=== PATIENT | male | born 1985 | race Caucasian/White ===

== ENCOUNTER → 2020-01-14 15:04 | Outpatient (BNVA) | payer OTHER, SELFPAY | PROVIDERS: PCP Family Medicine; Referring Provider Family Medicine; Visit Provider Physician Assistant | DX: K52.9 Noninfective gastroenteritis and colitis, unspecified (principal); A04.8 Other specified bacterial intestinal infections ==

== ENCOUNTER 2020-01-20 09:03 | Outpatient (REF) | payer OTHER, SELFPAY | END 2020-01-20 09:04 | disposition home or self-care (01) | LOC: HO.LAB 09:03 | PROVIDERS: PCP Family Medicine; Visit Provider Physician Assistant | DX: K52.9 Noninfective gastroenteritis and colitis, unspecified (principal) | CPT/HCPCS: 82785; 86003; 87338 ==

== ENCOUNTER → 2020-08-03 08:22 | Outpatient (BNVA) | payer OTHER, SELFPAY | PROVIDERS: PCP Family Medicine; Visit Provider Physician Assistant ==

== ENCOUNTER → 2020-09-14 08:22 | Outpatient (BNVA) | payer OTHER, SELFPAY | PROVIDERS: PCP Family Medicine; Visit Provider Physician Assistant ==

== ENCOUNTER 2020-10-25 09:54 | Outpatient (REF) | payer OTHER, SELFPAY ==
[2020-10-25 10:40] LABS: MANUAL DIFF FLAG NO
[2020-10-25 10:43] LABS: Basophils Percent Auto 0.6 % (0-2); Eosinophils Absolute Auto 0.1 X10*3/uL (0.0-0.4); Eosinophils Percent Auto 1.5 % (0-4); Hematocrit 43.3 % (42-52); Hemoglobin 14.4 g/dl (14.0-18.0); Imm Gran Abs Auto 0.03 X10*3/uL (0.00-0.03); Imm Gran Pct Auto 0.6 % (0.0-0.4); Lymphocytes Absolute Auto 1.7 X10*3/uL (1.2-4.9); Lymphocytes Percent Auto 31.8 % (20-40); Mean Corpuscular HGB Conc 33.3 g/dl (31.0-36.0); Mean Corpuscular Hemoglobin 29.2 pg (27.0-33.0); Mean Corpuscular Volume 87.8 fL (80-98); Mean Platelet Volume 10.2 fL (9.4-12.4); Monocytes Absolute Auto 0.5 X10*3/uL (0.1-1.2); Monocytes Percent Auto 10.3 % (2-11); Neutrophils Absolute Auto 2.9 X10*3/uL (2.0-8.3); Neutrophils Percent Auto 55.2 % (45-73); Platelet Count 284 X10*3/uL (160-400); Red Blood Count 4.93 X10*6/uL (4.60-5.80); Red Cell Distribution Width 12.2 % (11.0-16.0); White Blood Count 5.3 X10*3/uL (4.8-10.8)
[2020-10-25 11:53] LABS: Alanine Aminotransferase 23 U/L (0-40); Albumin Level 4.8 g/dL (3.5-5.0); Alkaline Phosphatase 55 U/L (39-117); Anion Gap 11 (12-20); Aspartate Amino Transferase 26 U/L (5-37); Blood Urea Nitrogen 18 mg/dL (9-16); Calcium 9.7 mg/dL (8.4-10.2); Carbon Dioxide 29 mmol/L (22-29); Chloride 104 mmol/L (96-108); Cholesterol 220 mg/dL; Estimated Glomerular Filt Rate > 60; Glucose Fasting 94 mg/dL (60-99); HDL Cholesterol 50 mg/dL; LDL Cholesterol Calculated 148 mg/dl; Potassium 4.3 mmol/L (3.3-5.1); Sodium 140 mmol/L (135-145); Total Protein 7.2 g/dL (6.5-8.0); Triglycerides 113 mg/dL
[2020-10-25 12:03] LABS: TSH reflex Free T4 1.49 uIU/mL (0.32-4.0)
== END 2020-10-25 09:55 | disposition home or self-care (01) ==
LOC: HO.WFDLDS 09:54
PROVIDERS: Visit Provider Family Medicine
DX: Z00.00 Encounter for general adult medical examination without abnormal findings (principal); R53.83 Other fatigue
CPT/HCPCS: 36415; 80053; 80061; 84443; 85025

== ENCOUNTER 2020-11-30 07:07 | Outpatient (REF) | payer OTHER, SELFPAY ==
[2020-11-30 13:12] LABS: Erythrocyte Sedimentation Rate 1 MM/HR (0-15)
[2020-12-02 01:07] LABS: Lyme Abs Screen <0.90 index
[2020-12-02 13:36] LABS: CRP High Sensitivity 0.6 mg/L
[2020-12-04 16:36] LABS: Testosterone, Free 97.6 pg/mL (35.0-155.0); Testosterone, Total 564 ng/dL (250-1100)
== END 2020-11-30 07:08 | disposition home or self-care (01) ==
LOC: HO.WFDLDS 07:07
PROVIDERS: Visit Provider Family Medicine
DX: R53.83 Other fatigue (principal)
CPT/HCPCS: 36415; 84402; 84403; 85652; 86141; 86617; 86618

== ENCOUNTER 2021-10-26 09:41 | Outpatient (REF) | payer OTHER, SELFPAY ==
[2021-10-26 11:21] LABS: MANUAL DIFF FLAG NO
[2021-10-26 11:32] LABS: Basophils Percent Auto 0.7 % (0-2); Eosinophils Absolute Auto 0.1 X10*3/uL (0.0-0.4); Eosinophils Percent Auto 1.5 % (0-4); Hematocrit 45.6 % (42.0-52.0); Hemoglobin 15.3 g/dl (14.0-18.0); Imm Gran Abs Auto 0.04 X10*3/uL (0.00-0.03); Imm Gran Pct Auto 0.7 % (0.0-0.4); Lymphocytes Percent Auto 36.5 % (20-40); Mean Corpuscular HGB Conc 33.6 g/dl (31.0-36.0); Mean Corpuscular Hemoglobin 29.4 pg (27.0-33.0); Mean Corpuscular Volume 87.7 fL (80.0-98.0); Mean Platelet Volume 10.8 fL (9.4-12.4); Monocytes Absolute Auto 0.5 X10*3/uL (0.1-1.2); Monocytes Percent Auto 8.8 % (2-11); Neutrophils Absolute Auto 2.8 x10*3/uL (2.0-8.3); Neutrophils Percent Auto 51.8 % (45-73); Platelet Count 292 X10*3/uL (160-400); Red Cell Distribution Width 11.9 % (11.0-16.0); White Blood Count 5.4 X10*3/uL (4.8-10.8)
[2021-10-26 12:02] LABS: Alanine Aminotransferase 46 U/L (0-40); Albumin Level 4.9 g/dL (3.5-5.0); Alkaline Phosphatase 53 U/L (39-117); Anion Gap 13 (12-20); Aspartate Amino Transferase 30 U/L (5-37); Bilirubin Total 0.9 mg/dL (0.0-1.0); Blood Urea Nitrogen 24 mg/dL (9-16); Calcium 9.9 mg/dL (8.4-10.2); Carbon Dioxide 26 mmol/L (22-29); Chloride 104 mmol/L (96-108); Cholesterol 258 mg/dL; Estimated Glomerular Filt Rate > 60; Glucose Fasting 95 mg/dL (60-99); HDL Cholesterol 55 mg/dL; LDL Cholesterol Calculated 183 mg/dl; Potassium 4.5 mmol/L (3.3-5.1); Sodium 138 mmol/L (135-145); Total Protein 7.6 g/dL (6.5-8.0); Triglycerides 104 mg/dL
[2021-10-26 12:11] LABS: TSH reflex Free T4 2.04 uIU/mL (0.32-4.0)
== END 2021-10-26 09:42 | disposition home or self-care (01) ==
LOC: HO.WFDLDS 09:41
PROVIDERS: Visit Provider Family Medicine
DX: Z00.00 Encounter for general adult medical examination without abnormal findings (principal)
CPT/HCPCS: 36415; 80053; 80061; 84443; 85025

== ENCOUNTER 2022-04-30 11:37 | Emergency (ER) | payer OTHER, SELFPAY ==
--- NOTE | ~2022-04-30 | US_ITS ---
EXAMINATION: US ABDOMEN LIMITED CLINICAL INFORMATION: Right upper quadrant pain. COMPARISON: Abdominal ultrasound 09/16/2019. TECHNIQUE: Real-time imaging of the right upper quadrant abdominal viscera. FINDINGS: PANCREAS: The body and tail are obscured by overlying bowel gas. The visualized portions of the head are within normal limits. LIVER: Normal. The liver is normal in size. The liver contour is normal. Parenchymal echogenicity is normal. No focal hepatic lesion. There is no intrahepatic biliary duct dilatation seen. GALLBLADDER: A 0.8 cm polyp is increased in size from 0.6 cm on 09/16/2019. The gallbladder is physiologically distended without evidence of stones, sludge, wall thickening or pericholecystic fluid. COMMON BILE DUCT: Normal in caliber measuring 0.4 cm in diameter. RIGHT KIDNEY: Mild pelvic fullness without calyectasis. No hydronephrosis. No renal calculi or focal parenchymal lesions. The kidney measures 12.6 cm in maximum dimension. FREE FLUID: None. US/US abdomen limited IMPRESSION: 1. No acute sonographic abnormalities to explain the patient's symptoms. 2. A 0.8 cm gallbladder polyp is increased in size from 0.6 cm on 09/16/2019. If patient has no risk factors for gallbladder malignancy, a follow-up ultrasound in 6 months is recommended. If the patient has risk factors for gallbladder malignancy, a surgical consultation is recommended.
--- NOTE | ~2022-04-30 | CT_ITS ---
EXAMINATION: CT ABDOMEN AND PELVIS WITH CONTRAST CLINICAL INFORMATION: RUQ pain COMPARISON: None. TECHNIQUE: Multidetector volumetric imaging was performed from the superior aspect of the liver through the pubic symphysis following administration of 85 mL Omnipaque 300 intravenous contrast. Sagittal and coronal reformatted images were obtained on the technologist workstation.. This CT examination was performed using dose optimization techniques as appropriate, variously including the following: *Automated exposure control *Adjustment of mA and/or kV according to patient size (this includes techniques or standardized protocols for targeted exams where dose is matched to indication/reason for exam; i.e. extremities or head) *Use of iterative reconstruction technique DLP: 620 mGy-cm FINDINGS: LUNG BASES: The visualized lung bases are unremarkable. LIVER, GALLBLADDER, AND BILIARY TREE: The liver is normal in size, shape, and attenuation. No focal hepatic lesion or biliary ductal dilatation is present. The gallbladder is unremarkable with no evidence of radiopaque gallstones, gallbladder wall thickening, or obvious pericholecystic inflammatory changes. PANCREAS: Unremarkable. SPLEEN: 14.2 cm maximum anterior posterior diameter ADRENAL GLANDS: Unremarkable. KIDNEYS AND URETERS: The kidneys are normal in size, shape, and attenuation. Incidental bilateral extrarenal pelvises. No hydronephrosis, hydroureter, or calculi seen. No perinephric stranding. BLADDER: Decompressed GASTROINTESTINAL TRACT: Dense material seen within the stool likely representing previously ingested antacid. I do not appreciate any colonic wall thickening or pericolonic inflammatory change. Normal-appearing appendix in the right lower quadrant without periappendiceal inflammatory change. Visualized small bowel unremarkable. ABDOMINAL WALL: No significant hernia is appreciated. LYMPHOVASCULAR STRUCTURES: Shotty retroperitoneal periaortic lymph nodes. The aorta is unremarkable. PELVIC VISCERA: Unremarkable. OSSEOUS STRUCTURES: Unremarkable. CT/CT abdomen pelvis w IV con IMPRESSION: I do not appreciate any acute intra-abdominal process. Dense material seen within the stool likely representing previously ingested antacid.
[2022-04-30 11:53] VITALS: BP 143/92; PULSE 75; RESP 18; TEMP 36.6; O2SAT 100; BMI 29.0
--- NOTE | 2022-04-30 11:54 | ED_ITS ---
HPI - Abdominal Pain General Chief Complaint: Abdominal Pain <FRANDY Archer - Last Filed: 04/30/22 11:56> Stated Complaint: Abdominal Pain <FRANDY Archer - Last Filed: 04/30/22 11:56> Time Seen by Provider: 04/30/22 16:10 <FRANDY Archer - Last Filed: 04/30/22 11:56> Source: patient <FRANDY Rush Last Filed: 04/30/22 19:25> Mode of arrival: ambulatory <FRANDY Rush Last Filed: 04/30/22 19:25> Limitations: no limitations <FRANDY Rush Last Filed: 04/30/22 19:25> History of Present Illness HPI narrative: 36-year-old male presenting to the clinic for evaluation of right upper quadrant pain, intermittent, sharp in nature X a few weeks worsening over the past few days. Patient states pain is worse after eating.? Patient tells me he has a history of polyps to his gallbladder which he has been seen for and has been told to monitor.? He tells me the pain is similar to the time he had polyps.? Reports that this pain is intolerable when he gets these episodes very hard for him to eat. Right now he feels comfortable however pain comes and goes.? Denies chest pain, shortness of breath, headache, vision changes, dizziness, weakness, nausea.? Does report diarrhea however has chronic diarrhea. Patient drinks 2X per week, beer and wine, however states not heavily. <FRANDY Rush Last Filed: 04/30/22 19:25> Related Data Home Medications: Home Medications Medication Instructions Recorded Confirmed pantoprazole 40 mg tablet,delayed 1 tab PO DAILY 04/30/22 04/30/22 release Previous Rx's Medication Instructions Recorded famotidine 20 mg tablet 20 mg PO DAILY #30 tabs 06/27/20 albuterol sulfate 90 mcg/actuation 2 puff inhalation Q4-6H PRN 10/25/20 aerosol inhaler (ProAir HFA) shortness of breath or wheezing 30 days #8.5 grams bupropion HCl 100 mg tablet 100 mg PO DAILY 90 days #90 tabs 11/15/21 atorvastatin 20 mg tablet 20 mg PO BEDTIME 30 days #30 tabs 11/23/21 <FRANDY Archer - Last Filed: 04/30/22 11:56> Allergies/Adverse Reactions: Allergies Allergy/AdvReac Type Severity Reaction Status Date / Time No Known Allergies Allergy Verified 04/30/22 11:08 [No Known Allergies*] <FRANDY Archer - Last Filed: 04/30/22 11:56> Review of Systems Review of Systems Constitutional : No Weight loss, No Fever, No Chills, No Fatigue, No Malaise ENT/Mouth : No sore throat, No Rhinorrhea Eyes: No Eye Pain, No Swelling, No Redness Cardiovascular : No Chest Pain, No SOB, No Dyspnea on Exertion, No Orthopnea, No Edema, No Palpitations Respiratory : No Cough, No Sputum, No Wheezing Gastrointestinal : No Nausea, No Vomiting, + Diarrhea, No Constipation, + abdominal Pain, No Hematochezia, No Melena Genitourinary : No Dysuria, No Urinary Frequency, No Hematuria, Musculoskeletal : No joint pain, No Myalgias, No Joint Swelling Skin : No Skin Lesions, No rash Neuro : No Weakness, No Numbness, No Dizziness, No Headache Psych : No Anxiety/Panic, No Depression All other systems reviewed and are negative <FRANDY Rush - Last Filed: 04/30/22 19:25> Yes all other systems are reviewed and are negative <FRANDY Rush - Last Filed: 04/30/22 19:25> PMFSH Past Medical History Attestation statement: The following information was validated with the patient. <FRANDY Rush - Last Filed: 04/30/22 19:25> Source: old records reviewed and nursing notes reviewed <FRANDY Rush - Last Filed: 04/30/22 19:25> Medical History: Medical History Chronic diarrhea <FRANDY Archer - Last Filed: 04/30/22 11:56> Surgical History: Surgical History History of ankle surgery <FRANDY Archer - Last Filed: 04/30/22 11:56> Family History Family History: Family History Father No problems noted. Mother No problems noted. 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 Current occupational exposures/hazards: Yes Cognitive needs: No Hearing needs: No Vision needs: No <FRANDY Archer - Last Filed: 04/30/22 11:56> Physical Exam ED Vital Signs: Vital Signs - 24 hr 04/30/22 11:53 04/30/22 16:08 Temperature 97.8 F 98.4 F Pulse Rate 75 82 Respiratory Rate 18 18 Blood Pressure 143/92 H 154/86 H Pulse Oximetry 100 100 Oxygen Delivery Method Room Air Room Air BMI result Body Mass Index 29.0 <FRANDY Archer - Last Filed: 04/30/22 11:56> Vital Signs - 24 hr 04/30/22 11:53 04/30/22 16:08 Temperature 97.8 F 98.4 F Pulse Rate 75 82 Respiratory Rate 18 18 Blood Pressure 143/92 H 154/86 H Pulse Oximetry 100 100 Oxygen Delivery Method Room Air Room Air BMI result Body Mass Index 29.0 vss <FRANDY Rush - Last Filed: 04/30/22 19:25> Appearance: Alert.? Oriented X3.? No acute distress.? Head: Normocephalic, atraumatic, no step-offs or deformities Eyes: Pupils equal, round and reactive to light.? Neck: Normal inspection.? Neck supple.? CVS: Normal heart rate and rhythm.? Pulses normal.? Respiratory: No respiratory distress.? Breath sounds normal.? Abdomen: Soft and +RUQ tenderness .? Skin: Skin warm and dry.? Normal skin color.? Normal skin turgor.? Extremities: No lower extremity edema.? No calf ttp. 5/5 strength to bilateral upper and lower extremities Back: No midline tenderness, no C-spine tenderness, full range of motion, no CVA tenderness bilaterally Neuro: Oriented X 3.? No motor deficit.? No sensory deficit. CN 2-12 intact <FRANDY Rush - Last Filed: 04/30/22 19:25> Course Course Course Narrative: RME - 36 yo M, with a hx of gall bladder polyps, presenting today for evaluation of RUQ pain x 1.5 weeks. Associated indigestion, nausea, and diarr hea. Denies vomiting. Pain worsens after eating. Seen at urgent care today and was told to come here. VSS in triage. Stable to return to the waiting room until treatment room becomes available. Plan: Labs, and US RUQ ordered. <FRANDY Archer - Last Filed: 04/30/22 1 1:56> Reevaluation(s) Reevaluation #1: CBC appears to be within normal limits. Chemistry with no acute elec trolyte abnormalities requiring intervention. Patient's bilirubin slightly elevated 1.2. Lipase 170 consistent with acute pancreatitis. Ultrasound of the abdomen limited with no acute sonographic abnormalities to explain the patient's symptoms the gallbladder polyp does appear to have increased in size. CT of the abdomen and pelvis with no acute findings. Patient will receive IV hydration and be admitted to the hospital for acute pancreatitis. <FRANDY Rush - Last Filed: 04/30/22 19:25> Time: 19:25 <FRANDY Rush - Last Filed: 04/30/22 19:25> Medical Decision Making Medical Decision Making MDM Narrative: 1600 36-year-old man presents with right upper quadrant pain worse after eating few weeks worsening over the past few days. History of gallbladder polyps. Physical exam right upper quadrant tenderness to palpation. Concerns for possible cholecystitis, no signs of acute abdomen, diverticulitis, appendicitis. Other differentials include pancreatitis. Plan at this time labs, urine, ultrasound and CT scan <FRANDY Rush - Last Filed: 04/30/22 19:25> Differential Diagnosis Differential Diagnoses: The differential diagnosis associated with the presentation includes <FRANDY Rush - Last Filed: 04/30/22 19:25> Concerns for possible cholecystitis, no signs of acute abdomen, diverticulitis, appendicitis. Other differentials include pancreatitis. < FRANDY Rush - Last Filed: 04/30/22 19:25> Admission/Observation Consideration of admission/observation: Escalation of care including admission/observation considered <FRANDY Rush - Last Filed: 04/30/22 19:25> Patient will likely require hospital admission <FRANDY Rush - Last Filed: 04/30/22 19:25> Lab Data MDM Lab Attestation statement: I reviewed the patient's lab results. <FRANDY Rush - Last Filed: 04/30/22 19:25> Result Diagrams: 04/30/22 12:13 04/30/22 12:13 <FRANDY Archer - Last Filed: 04/30/22 11:56> Labs: Lab Results 04/30/22 04/30/22 04/30/22 Range/Units 12:13 12:13 12:13 WBC 9.0 (4.8-10.8) X10*3/uL RBC 5.11 (4.60-5.80) X10*6/uL Hgb 14.8 (14.0-18.0) g/dl Hct 43.7 (42.0-52.0) % MCV 85.5 (80.0-98.0) fL MCH 29.0 (27.0-33.0) pg MCHC 33.9 (31.0-36.0) g/dl RDW 12.5 (11.0-16.0) % Plt Count 259 (160-400) X10*3/uL MPV 9.4 (9.4-12.4) fL Immature Gran % (Auto) 1.0 H (0.0-0.4) % Neut % (Auto) 83.9 H (45-73) % Lymph % (Auto) 8.7 L (20-40) % [place] % (Auto) 5.2 (2-11) % Eos % (Auto) 1.0 (0-4) % Baso % (Auto) 0.2 (0-2) % Lymph # (Auto) 0.8 L (1.2-4.9) X10*3/uL [place] # (Auto) 0.5 (0.1-1.2) X10*3/uL Eos # (Auto) 0.1 (0.0-0.4) X10*3/uL Baso # (Auto) 0.0 (0.0-0.2) X10*3/uL Abs Immat Gran (auto) 0.09 H (0.00-0.03) X10*3/uL Absolute Neuts (auto) 7.6 (2.0-8.3) x10*3/uL Absolute Nucleated RBC 0.000 (0.0-0.012) X10*3/uL Nucleated RBC % (auto) 0.0 (0.0-0.2) /100WBC Sodium 138 (135-145) mmol/L Potassium 4.6 (3.3-5.1) mmol/L Chloride 106 (96-108) mmol/L Carbon Dioxide 27 (22-29) mmol/L Anion Gap 10 L (12-20) BUN 19 H (9-16) mg/dL Creatinine 1.07 (0.5-1.4) mg/dL Estim Creat Clear Calc 100.7 Estimated GFR > 60 Random Glucose 88 (60-115) mg/dL Calcium 9.1 D (8.4-10.2) mg/dL Magnesium 1.8 (1.6-2.6) mg/dL Total Bilirubin 1.2 H (0.0-1.0) mg/dL Direct Bilirubin 0.2 (0.0-0.5) mg/dL AST 31 (5-37) U/L ALT 47 H (0-40) U/L Alkaline Phosphatase 61 (39-117) U/L Total Protein 7.0 (6.5-8.0) g/dL Albumin 4.6 (3.5-5.0) g/dL Triglycerides 77 mg/dL Lipase 170 H (8-78) U/L Urine Color Yellow Urine Appearance Clear Urine pH 5.5 (5.0-9.0) Ur Specific [place] 1.010 (1.005-1.025) Urine Protein Negative (Neg-Trace) mg/dL Urine Glucose (UA) Negative (Negative) mg/dL Urine Ketones Negative (Negative) mg/dL Urine Blood Negative (Negative) Urine Nitrite Negative (Negative) Ur Leukocyte Esterase Negative (Negative) <FRANDY Archer - Last Filed: 04/30/22 11:56> Lab Results 04/30/22 04/30/22 04/30/22 Range/Units 12:13 12:13 12:13 WBC 9.0 (4.8-10.8) X10*3/uL RBC 5.11 (4.60-5.80) X10*6/uL Hgb 14.8 (14.0-18.0) g/dl Hct 43.7 (42.0-52.0) % MCV 85.5 (80.0-98.0) fL MCH 29.0 (27.0-33.0) pg MCHC 33.9 (31.0-36.0) g/dl RDW 12.5 (11.0-16.0) % Plt Count 259 (160-400) X10*3/uL MPV 9.4 (9.4-12.4) fL Immature Gran % (Auto) 1.0 H (0.0-0.4) % Neut % (Auto) 83.9 H (45-73) % Lymph % (Auto) 8.7 L (20-40) % [place] % (Auto) 5.2 (2-11) % Eos % (Auto) 1.0 (0-4) % Baso % (Auto) 0.2 (0-2) % Lymph # (Auto) 0.8 L (1.2-4.9) X10*3/uL [place] # (Auto) 0.5 (0.1-1.2) X10*3/uL Eos # (Auto) 0.1 (0.0-0.4) X10*3/uL Baso # (Auto) 0.0 (0.0-0.2) X10*3/uL Abs Immat Gran (auto) 0.09 H (0.00-0.03) X10*3/uL Absolute Neuts (auto) 7.6 (2.0-8.3) x10*3/uL Absolute Nucleated RBC 0.000 (0.0-0.012) X10*3/uL Nucleated RBC % (auto) 0.0 (0.0-0.2) /100WBC Sodium 138 (135-145) mmol/L Potassium 4.6 (3.3-5.1) mmol/L Chloride 106 (96-108) mmol/L Carbon Dioxide 27 (22-29) mmol/L Anion Gap 10 L (12-20) BUN 19 H (9-16) mg/dL Creatinine 1.07 (0.5-1.4) mg/dL Estim Creat Clear Calc 100.7 Estimated GFR > 60 Random Glucose 88 (60-115) mg/dL Calcium 9.1 D (8.4-10.2) mg/dL Magnesium 1.8 (1.6-2.6) mg/dL Total Bilirubin 1.2 H (0.0-1.0) mg/dL Direct Bilirubin 0.2 (0.0-0.5) mg/dL AST 31 (5-37) U/L ALT 47 H (0-40) U/L Alkaline Phosphatase 61 (39-117) U/L Total Protein 7.0 (6.5-8.0) g/dL Albumin 4.6 (3.5-5.0) g/dL Triglycerides 77 mg/dL Lipase 170 H (8-78) U/L Urine Color Yellow Urine Appearance Clear Urine pH 5.5 (5.0-9.0) Ur Specific [place] 1.010 (1.005-1.025) Urine Protein Negative (Neg-Trace) mg/dL Urine Glucose (UA) Negative (Negative) mg/dL Urine Ketones Negative (Negative) mg/dL Urine Blood Negative (Negative) Urine Nitrite Negative (Negative) Ur Leukocyte Esterase Negative (Negative) <FRANDY Rush - Last Filed: 04/30/22 19:25> Independent Interpretation I performed an independent interpretation of an: Ultrasound and CT Scan <FRANDY Rush - Last Filed: 04/30/22 19:25> Radiology Impression Discussion of test interpretation with radiology: I have reviewed the radiologist's reading. <FRANDY Rush - Last Filed: 04/30/22 19:25> External Record Review External record reviewed: Inpatient record, Office record, Outpatient record, Prior outpatient labs, Prior outpatient radiology, Primary care record and Outside ED record <FRANDY Rush - Last Filed: 04/30/22 19:25> Core Measures AMI core measures followed: Yes <FRANDY Rush - Last Filed: 04/30/22 19:25> Measure exclusions: not indicated <FRANDY Rush - Last Filed: 04/30/22 19:25> Medications Administered Discontinued Medications Generic Name Dose Route Start Last Admin Trade Name Freq PRN Reason Stop Dose Admin Sodium Chloride 1,000 mls @ 999 mls/hr 04/30/22 16:45 04/30/22 18:09 Ns IV 04/30/22 17:45 Infused .Q1H1M CHRISTIAN Infusion Iohexol 100 ml 04/30/22 16:54 04/30/22 16:55 Iohexol 350 Mg/Ml 100 Ml Infus..Btl IV 04/30/22 16:55 85 ml ONCE ONE Administration Ketorolac Tromethamine 30 mg 04/30/22 16:38 04/30/22 16:58 Ketorolac Tromethamine 15 Mg/Ml Vial IVPUSH 04/30/22 16:39 30 mg ONCE ONE Administration <FRANDY Archer - Last Filed: 04/30/22 11:56> Medications Administered Discontinued Medications Generic Name Dose Route Start Last Admin Trade Name Freq PRN Reason Stop Dose Admin Sodium Chloride 1,000 mls @ 999 mls/hr 04/30/22 16:45 04/30/22 18:09 Ns IV 04/30/22 17:45 Infused .Q1H1M CHRISTIAN Infusion Iohexol 100 ml 04/30/22 16:54 04/30/22 16:55 Iohexol 350 Mg/Ml 100 Ml Infus..Btl IV 04/30/22 16:55 85 ml ONCE ONE Administration Ketorolac Tromethamine 30 mg 04/30/22 16:38 04/30/22 16:58 Ketorolac Tromethamine 15 Mg/Ml Vial IVPUSH 04/30/22 16:39 30 mg ONCE ONE Administration <FRANDY Rush - Last Filed: 04/30/22 19:25> Critical Care Time Critical Care Time Critical Care Time: No <FRANDY Rush - Last Filed: 04/30/22 19:25> Discharge Plan Discharge Clinical Impression: Pancreatitis <FRANDY Archer - Last Filed: 04/30/22 11:56> Patient Disposition: Admitted As Inpatient <FRANDY Archer - Last Filed: 04/30/22 11:56>
[2022-04-30 12:17] LABS: MANUAL DIFF FLAG NO
[2022-04-30 12:20] LABS: Basophils Percent Auto 0.2 % (0-2); Eosinophils Absolute Auto 0.1 X10*3/uL (0.0-0.4); Hematocrit 43.7 % (42.0-52.0); Hemoglobin 14.8 g/dl (14.0-18.0); Imm Gran Abs Auto 0.09 X10*3/uL (0.00-0.03); Lymphocytes Absolute Auto 0.8 X10*3/uL (1.2-4.9); Lymphocytes Percent Auto 8.7 % (20-40); Mean Corpuscular HGB Conc 33.9 g/dl (31.0-36.0); Mean Corpuscular Volume 85.5 fL (80.0-98.0); Mean Platelet Volume 9.4 fL (9.4-12.4); Monocytes Absolute Auto 0.5 X10*3/uL (0.1-1.2); Monocytes Percent Auto 5.2 % (2-11); Neutrophils Absolute Auto 7.6 x10*3/uL (2.0-8.3); Neutrophils Percent Auto 83.9 % (45-73); Platelet Count 259 X10*3/uL (160-400); Red Blood Count 5.11 X10*6/uL (4.60-5.80); Red Cell Distribution Width 12.5 % (11.0-16.0)
[2022-04-30 12:26] LABS: Appearance Urine Clear; Color Urine Yellow; Glucose Urine UA Negative (Negative); Leukocyte Esterase Urine Negative (Negative); Nitrite Urine Negative (Negative); PH 5.5 (5.0-9.0); Urine Blood Negative (Negative); Urine Ketones Negative (Negative); Urine Protein Negative (Neg-Trace)
[2022-04-30 12:43] LABS: Alanine Aminotransferase 47 U/L (0-40); Albumin Level 4.6 g/dL (3.5-5.0); Alkaline Phosphatase 61 U/L (39-117); Anion Gap 10 (12-20); Aspartate Amino Transferase 31 U/L (5-37); Bilirubin Direct 0.2 mg/dL (0.0-0.5); Bilirubin Total 1.2 mg/dL (0.0-1.0); Blood Urea Nitrogen 19 mg/dL (9-16); Calcium 9.1 mg/dL (8.4-10.2); Carbon Dioxide 27 mmol/L (22-29); Chloride 106 mmol/L (96-108); Creatinine Clr Calc Pharmacy 100.7; Estimated Glomerular Filt Rate > 60; Glucose Random 88 mg/dL (60-115); Lipase 170 U/L (8-78); Magnesium 1.8 mg/dL (1.6-2.6); Potassium 4.6 mmol/L (3.3-5.1); Sodium 138 mmol/L (135-145)
[2022-04-30 16:08] VITALS: BP 154/86; PULSE 82; RESP 18; TEMP 36.9; O2SAT 100
[2022-04-30 16:54] LABS: Triglycerides 77 mg/dL
[2022-04-30] MEDS: iohexoL 350 MG/ML 100 ML INFUS..BTL IV (16:55)
[2022-04-30] MEDS: Ketorolac Tromethamine 15 MG/ML VIAL 30 MG IVPUSH (16:58)
[2022-04-30] MEDS: 0.9 % Sodium Chloride 1,000 ML 999 ML IV (16:59)
--- NOTE | 2022-04-30 19:55 | PHA.MEDREC ---
Pharmacy Consult ? Medication Reconciliation Pharmacy has completed the medication reconciliation. Pharmacy has reviewed med rec done by Day Andersen.
--- NOTE | 2022-04-30 19:58 | PC.NURSE ---
I took over care of the pt at 1900. Pt is resting comfortably in bed with a visitor at the bedside. Pt had no complaints and was able to stand to ambulate to the bathroom.
== END 2022-04-30 20:41 | disposition home or self-care (01) ==
PROVIDERS: Physician Assistant; Emergency Provider Student in an Organized Health Care Education/Training Program; PCP Family Medicine
DX: K85.90 Acute pancreatitis without necrosis or infection, unspecified (principal); E78.00 Pure hypercholesterolemia, unspecified; K52.9 Noninfective gastroenteritis and colitis, unspecified; Z79.899 Other long term (current) drug therapy
CPT/HCPCS: 36415; 74177; 76705; 80048; 80076; 81003; 83690; 83735; 84478; 85025; 96361; 96374; 99284; 99285; J1885; Q9967

== ENCOUNTER → 2022-05-03 08:50 | Outpatient (BNVA) | payer OTHER, SELFPAY | PROVIDERS: PCP Family Medicine; Visit Provider Surgery | DX: Z13.89 Encounter for screening for other disorder (principal) ==

== ENCOUNTER 2022-05-22 08:43 | Outpatient (REF) | payer OTHER, SELFPAY ==
[2022-05-22 11:40] LABS: MANUAL DIFF FLAG NO
[2022-05-22 11:49] LABS: Basophils Percent Auto 0.7 % (0-2); Eosinophils Absolute Auto 0.2 X10*3/uL (0.0-0.4); Eosinophils Percent Auto 2.4 % (0-4); Hematocrit 43.7 % (42.0-52.0); Hemoglobin 14.5 g/dl (14.0-18.0); Imm Gran Abs Auto 0.04 X10*3/uL (0.00-0.03); Imm Gran Pct Auto 0.7 % (0.0-0.4); Lymphocytes Percent Auto 32.6 % (20-40); Mean Corpuscular HGB Conc 33.2 g/dl (31.0-36.0); Mean Corpuscular Volume 87.4 fL (80.0-98.0); Mean Platelet Volume 10.5 fL (9.4-12.4); Monocytes Absolute Auto 0.6 X10*3/uL (0.1-1.2); Monocytes Percent Auto 9.9 % (2-11); Neutrophils Absolute Auto 3.3 x10*3/uL (2.0-8.3); Neutrophils Percent Auto 53.7 % (45-73); Platelet Count 311 X10*3/uL (160-400); Red Cell Distribution Width 12.5 % (11.0-16.0); White Blood Count 6.1 X10*3/uL (4.8-10.8)
[2022-05-22 12:24] LABS: Erythrocyte Sedimentation Rate 2 MM/HR (0-15)
[2022-05-22 12:25] LABS: Alanine Aminotransferase 17 U/L (0-40); Albumin Level 4.5 g/dL (3.5-5.0); Alkaline Phosphatase 62 U/L (39-117); Anion Gap 11 (12-20); Aspartate Amino Transferase 18 U/L (5-37); Bilirubin Total 1.2 mg/dL (0.0-1.0); Blood Urea Nitrogen 21 mg/dL (9-16); C Reactive Protein 0.12 mg/dL (< or = 0.50); Calcium 9.2 mg/dL (8.4-10.2); Carbon Dioxide 29 mmol/L (22-29); Chloride 105 mmol/L (96-108); Estimated Glomerular Filt Rate > 60; Glucose Random 94 mg/dL (60-115); Lipase 28 U/L (8-78); Potassium 4.7 mmol/L (3.3-5.1); Sodium 140 mmol/L (135-145); Total Protein 6.8 g/dL (6.5-8.0)
== END 2022-05-22 08:44 | disposition home or self-care (01) ==
LOC: HO.WFDLDS 08:43
PROVIDERS: Visit Provider Physician Assistant
DX: K52.9 Noninfective gastroenteritis and colitis, unspecified (principal); R74.01 Elevation of levels of liver transaminase levels; R74.8 Abnormal levels of other serum enzymes
CPT/HCPCS: 36415; 80053; 83690; 85025; 85652; 86140

== ENCOUNTER 2022-05-24 13:20 | Outpatient (REF) | payer OTHER, SELFPAY ==
[2022-05-24 15:44] LABS: Appearance Urine Clear; Color Urine Yellow; Glucose Urine UA Negative (Negative); Leukocyte Esterase Urine Negative (Negative); Nitrite Urine Negative (Negative); Urine Blood Negative (Negative); Urine Ketones Negative (Negative); Urine Protein Negative (Neg-Trace)
== END 2022-05-24 13:21 | disposition home or self-care (01) ==
LOC: HO.LAB 13:20
PROVIDERS: PCP Family Medicine; Visit Provider Physician Assistant
DX: R10.815 Periumbilic abdominal tenderness (principal); R74.01 Elevation of levels of liver transaminase levels
CPT/HCPCS: 81003

== ENCOUNTER 2022-07-10 12:33 | Day surgery (SDC) | payer OTHER, SELFPAY ==
--- NOTE | 2022-07-09 12:08 | HO.ANESPROP2 ---
Documented by User: Ann Chavez NP 07/09/22 12:09 HPI - Anesthesia Eval Consult details Narrative: 36yo M for Upper Endoscopy and Colonoscopy [facility] Active Problems Active Problems: All Active Problems (Updated 05/24/22 @ 14:00 by Emma Rodriguez PA-C) Periumbilic abdominal tenderness (Acute) Hospital discharge follow-up (Acute) Elevated lipase (Acute) Gallbladder polyp (Acute) Hypercholesterolemia (Acute) Elevated ALT measurement (Acute) Fatigue (Acute) Annual physical exam (Acute) Anxiety, generalized (Acute) Heartburn (Acute) Chronic diarrhea (Acute) Past Medical History Medical History Chronic diarrhea Gallbladder polyp Family History Family History Father No problems noted. Mother No problems noted. 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 Current occupational exposures/hazards: Yes Cognitive needs: No Hearing needs: No Vision needs: No Meds Allergies Allergy/AdvReac Type Severity Reaction Status Date / Time No Known Allergies Allergy Verified 07/10/22 12:39 [No Known Allergies*] Home Medications Medication Instructions Recorded Confirmed Last Taken Type levocetirizine 2.5 mg/5 mL oral 2.5 mg PO QPM 05/03/22 07/10/22 Unknown History solution (Xyzal) Exam Exam Date and Time: July 09, 2022 1208 Pertinent Lab Results Pertinent Lab Results: Laboratory Tests 05/22/22 05/22/22 08:50 08:50 WBC 6.1 Hgb 14.5 Hct 43.7 Plt Count 311 Sodium 140 Potassium 4.7 Chloride 105 Carbon Dioxide 29 BUN 21 H Creatinine 1.00 Assessment and Plan Assessment Anesthesia Assessment: Chart Reviewed Documented by User: Yohana Velez DO 07/10/22 13:38 [facility] Past Medical History Medical History Chronic diarrhea Gallbladder polyp Family History Family History Father No problems noted. Mother No problems noted. Family history of problems with anesthesia: No Surgical History Surgical History History of ankle surgery History of Problems with Anesthesia: No Social History Social History Household Members: Spouse Housing: House Alcohol intake: current Alcohol intake frequency: a few times a week Alcohol type: beer and wine Patient Tobacco Use Status: Never used Tobacco e-Cigarette/Vaping Use: Never Used Second Hand Smoke Exposure: No Use of substances other than those prescribed or required for medical reasons: No Are you DNR?: No Advance Directives: No Advance Directives Information Provided: Yes service: No 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 occupational status: employed 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 Current occupational exposures/hazards: Yes Cognitive needs: No Hearing needs: No Vision needs: No Meds Allergies Allergy/AdvReac Type Severity Reaction Status Date / Time No Known Allergies Allergy Verified 07/10/22 12:39 [No Known Allergies*] Home Medications Medication Instructions Recorded Confirmed Last Taken Type levocetirizine 2.5 mg/5 mL oral 2.5 mg PO QPM 05/03/22 07/10/22 Unknown History solution (Xyzal) Exam Exam Date and Time: July 10, 2022 1336 Height,Weight and Vital Signs: Vital Signs Temperature 97.9 F 07/10/22 12:42 Pulse Rate 68 07/10/22 12:42 Respiratory Rate 16 07/10/22 12:42 Blood Pressure 130/78 07/10/22 12:42 Pulse Oximetry 99 07/10/22 12:42 Oxygen Delivery Method Room Air 07/10/22 12:42 Temperature 97.9 F 07/10/22 12:42 Pulse Rate 68 07/10/22 12:42 Respiratory Rate 16 07/10/22 12:42 Blood Pressure 130/78 07/10/22 12:42 Pulse Oximetry 99 07/10/22 12:42 Oxygen Delivery Method Room Air 07/10/22 12:42 Height 5 ft 7 in Weight 83.915 kg Airway Mallampati Class: I TM Dist: >3cm Neck ROM: Full Loose/Missing/Broken Teeth: No Heart: S1S2 Lungs: CTAB Assessment and Plan Final Anesthetic Review Family History of Problems with Anesthesia: No History of Problems with Anesthesia: No NPO: Yes ASA Class: II Final Preanesthetic Review: No Changes in Pt Med Stat, Meds/Allgs Chart Reviewed, Consent Obtained/Reviewed and Anes Risks/Benef Reviewed Patient Risk: Low Procedure Risk: Low Anesthetic Plan Anesthetic Plan: MAC: Disposition: Standard PACU
[2022-07-10 12:42] VITALS: BP 130/78; PULSE 68; RESP 16; TEMP 36.6; O2SAT 99; BMI 29.0
--- NOTE | 2022-07-10 13:35 | P.HPSUR_ITS ---
Pre-Procedural Eval Section A Date of Service: 07/10/22 Section B Chief Complaint: Periumbilic abdominal tenderness,Elevation of leve Relevant Family History (Specify if Yes): No Relevant Social History: Alcohol Use (occasional) Present Medications: see Short Stay Collaborative assessment Medical History: Significant History (Chronic diarrhea Gallbladder polyp) History of Previous Operations: Relevant previous surgery/procedure and date(s) (ankle surgery) Allergies: Allergies Allergy/AdvReac Type Severity Reaction Status Date / Time No Known Allergies Allergy Verified 07/10/22 12:39 [No Known Allergies*] Review of Systems Sugical H&P ROS: Negative: Constitution, Cardiovascular, Respiratory, Neurological, Psychiatric, Hem-Onc, Allergic/Immunologic, Gastrointestinal, Genitourinary, Musculoskeletal, Integumentary, Endocrine and Eyes/Ears/Nose/T hroat Exam Surgical H&P Exam: Normal: HEENT, Normal: Heart, Normal: Lungs, Normal: Extremities, Normal: Abdomen, Normal: Skin and Normal: Neurological Plan Diagnosis/Plan: Unchanged I have reviewed the history and physical and performed a pertinent physical examination on my patient. No changes have occurred unless specified. Time Spent With Patient Time: Total time managing care of this patient today ____ minutes.
--- NOTE | 2022-07-10 13:35 | W.PM.OPN ---
Operative Note Operative Note Date of Service: 07/10/22 Narrative: Operative Information Procedure Description: EGD, Colonoscopy Indication: abdominal pain, nausea Anesthesia: MAC FLEXIBLE TRANSORAL UPPER GASTROINTESTINAL ENDOSCOPY AND COLONOSCOPY PROCEDURE NOTE UPPER ENDOSCOPY Consent: Indications for the procedure and potential complications of bleeding, perforation, reaction to medications and missed diagnosis were discussed with the patient and informed consent was obtained. Instrument: Olympus GIF H 190 J mid size upper endoscope Monitoring: Vital signs and clinical assessment, continuous EKG monitoring, Pulse oximetry, Carbon Dioxide monitoring and blood pressure monitoring were done throughout the procedure. Procedure: The patient was placed in the left lateral decubitis position and pre-procedure medications were administered and a bite block was placed. The endoscope was inserted into the mouth and advanced under direct vision to the third part of duodenum. A careful inspection was made as the upper endoscope was withdrawn including a retroflexed examination of the proximal stomach; Findings and interventions are described below. Findings: Larynx:normal Esophagus: GE junction at 38 cm, diaphragm hiatus at 40 cm, slightly irregular GEJ possible short segment barretts, bx taken from gEJ and distal esophagus, also schatzki ring noted with lax LES and 2 cm sliding hiatal hernia Stomach: mild erythema. Biopsies were obtained. Grade 2 flap valve on retroflexed examination of the cardia. Duodenum: Normal bulb and descending duodenum, bx taken Intervention: Biopsies as noted above COLONOSCOPY Instrument: Olympus variable stiffness pediatric scope 190L Colonoscopy Monitoring: Vital signs and clinical assessment, continuous EKG monitoring, Pulse oximetry, Carbon Dioxide monitoring and blood pressure monitoring were done throughout the procedure. Colon withdrawal time was 9 minutes. Procedure: The patient was placed in the left lateral decubitis position and pre-procedure medications were administered. After a digital rectal examination of the ano-rectum, the video colonoscope was inserted into the rectum and advanced through the colon to the cecum/TI. The colonoscope was slowly withdrawn in a retrograde panoramic fashion and the colon mucosa was carefully examined including a retroflexed view of the rectum. Findings and interventions are described below. Procedure Difficulty:easy Findings: Terminal Ileum-normal, bx taken random colon bx taken Cecum:normal Ascending Colon: normal Transverse Colon -normal Descending Colon:normal Sigmoid Colon: normal Rectum: Retroflexion with small internal hemorrhoids, grade I Anorectum - normal Colon preparation: [place] Bowel Preparation Scale Right colon; 3 Transverse colon: 3 Left colon; 3 (0 = Unprepared colon segment with mucosa not seen due to solid stool that cannot be cleared. 1 = Portion of mucosa of the colon segment seen, but other areas of the colon segment not well seen due to staining, residual stool and/or opaque liquid. 2 = Minor amount of residual staining, small fragments of stool and/or opaque liquid, but mucosa of colon segment seen well. 3 = Entire mucosa of colon segment seen well with no residual staining, small fragments of stool or opaque liquid) Impression and Post Procedure Diagnosis: Endoscopy Findings: lax LES schatzki ring hiatal hernia possible barretts mild gastritis Colonoscopy Findings: small internal hemorrhoids Plan: Await Pathology results Repeat Colonoscopy aged 45 or earlier if clinically indicated High fiber diet leaflet avoid straining at stool, epsom salts and sitz bath, anusol supps or cream GERD precautions consider VCe if ongoing sx and bx negative Above findings were reviewed with the patient and relevant handouts were provided if indicated.
[2022-07-10] MEDS: Lactated Ringers 1,000 ML 100 ML IVCONT (13:44)
[2022-07-10 14:18] VITALS: BP 107/66; PULSE 59; RESP 20; TEMP 36.4; O2SAT 97
[2022-07-10 14:33] VITALS: BP 107/66; PULSE 65; RESP 16; TEMP 36.4; O2SAT 99
== END 2022-07-10 15:05 | disposition home or self-care (01) ==
PROVIDERS: PCP Family Medicine; Visit Provider Internal Medicine Gastroenterology
PROC: (CPT 45380; principal; 2022-07-10 14:00)
DX: K52.9 Noninfective gastroenteritis and colitis, unspecified (principal); R10.33 Periumbilical pain; K64.0 First degree hemorrhoids; R74.01 Elevation of levels of liver transaminase levels; K29.50 Unspecified chronic gastritis without bleeding; K22.4 Dyskinesia of esophagus; K22.2 Esophageal obstruction; K44.9 Diaphragmatic hernia without obstruction or gangrene; K82.4 Cholesterolosis of gallbladder; Z79.899 Other long term (current) drug therapy
CPT/HCPCS: 45380; 43239; 88305; 88342

== ENCOUNTER → 2022-08-09 09:19 | Outpatient (BNVA) | payer OTHER, SELFPAY | PROVIDERS: PCP Family Medicine; Visit Provider Physician Assistant ==

== ENCOUNTER 2022-10-26 10:51 | Outpatient (AMB) | payer OTHER, SELFPAY ==
--- NOTE | 2022-10-26 11:13 | AM.OFFWIN_ITS ---
Intake Vital Signs 10/26/22 11:16 Height 5 ft 7 in Weight 190 lb BMI 29.8 BP 130/70 Blood Pressure Location Rt brachial Position Sitting Pulse 59 Pulse Source Pulse Oximeter Temp 97.7 F Temp Source Temporal Artery Scan Pulse Oximetry (%) 99 Oxygen Delivery Method Room Air Intake Visit Reasons: EP RT Hand Injury Intake Note: Pt is here c/o right hand pain. Pt states he walking in his house this morning from work with all his stuff when he tripped and fell on his hand. Patient Tobacco Use Status: Never used Tobacco Allergies No Known Allergies [No Known Allergies*] Allergy (Verified 10/26/22 11:50) Medication List - Last Reconciled 10/26/22 by Durga Grant MD albuterol sulfate 90 mcg/actuation (ProAir HFA) 2 puffs inhalation Q4-6H PRN 30 days alum-mag hydroxide-simeth 200-200-20 mg/5 mL (Maalox Advanced) 5 mL PO 5XD PRN bupropion HCl 100 mg PO DAILY 90 days levocetirizine (Xyzal) 2.5 mg PO QPM methylcellulose (laxative) (Citrucel) 500 mg PO TID pantoprazole 40 mg PO DAILY Do you need a note to return to daycare/school/sports/work: No HPI EP RT Hand Injury HPI Details 37-year-old male presents to the office for a sick visit. 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 He fell on his hands this morning. In the process his right hand is swollen and bruised. He would like an evaluation. [facility] Medical History (Updated 10/26/22 @ 11:48 by Durga Grant MD) Chronic diarrhea Gallbladder polyp Surgical History History of ankle surgery History of esophagogastroduodenoscopy (EGD) Hx of colonoscopy Family History Father No problems noted. Mother No problems noted. 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 Full range of motion in all the digits. Assessment & Plan Assessment & Plan (1) Contusion of hand, right: Code(s): S60.221A - Contusion of right hand, initial encounter Plan: X-ray images were personally reviewed by me. Fracture of the 5th metatarsal. A wrist brace was provided to the patient. Anti-inflammatories called in. An orthopedic surgeon appointment was made. Orders: Referrals Orthopedics Referral S60.221A - Contusion of right hand, initial encounter Coding Level of Care Code Est Pt Level 4 (94348) Diagnoses Contusion of hand, right S60.221A
[2022-10-26 11:16] VITALS: BP 130/70; PULSE 59; TEMP 36.5; O2SAT 99; BMI 29.8
== END 2022-10-26 12:06 | disposition home or self-care (01) ==
PROVIDERS: PCP Family Medicine; Visit Provider Internal Medicine
DX: S60.221A Contusion of right hand, initial encounter (principal)
CPT/HCPCS: 99214

== ENCOUNTER 2022-10-26 11:49 | Outpatient (REF) | payer OTHER, SELFPAY ==
--- NOTE | ~2022-10-26 | XR_ITS ---
EXAMINATION: XR HAND, RIGHT CLINICAL INFORMATION: Trauma COMPARISON: None available. TECHNIQUE: PA, lateral, and oblique views of the right hand. FINDINGS: There is a comminuted angulated displaced fracture of the base of the fifth metacarpal bone. This appears intra-articular with the fifth SKILLED NURSING. There is adjacent soft tissue swelling. XR/XR hand RT min 3V IMPRESSION: Comminuted displaced angulated fracture of the base of the fifth metacarpal bone intra-articular with the SKILLED NURSING joint. Findings will be communicated by the [facility] work flow compotype operator.
== END 2022-10-26 11:50 | disposition home or self-care (01) ==
LOC: HO.HMGCX 11:49
PROVIDERS: PCP Family Medicine; Visit Provider Internal Medicine
DX: S60.221A Contusion of right hand, initial encounter (principal)
CPT/HCPCS: 73130

== ENCOUNTER 2022-11-15 09:22 | Outpatient (AMB) | payer OTHER, SELFPAY ==
[2022-11-15 09:31] VITALS: BP 122/74; PULSE 74; BMI 29.0
--- NOTE | 2022-11-15 09:31 | A.OFFVIS_ITS ---
Intake Vital Signs 11/15/22 09:31 Height 5 ft 7 in Weight 185 lb BMI 29.0 BP 122/74 Blood Pressure Location Lt brachial Position Sitting Pulse 74 Intake Visit Reasons: 3 month follow up Intake Note: Patient follow up for Esophagitis. Patient denies any GI issues. Chicken Dresser Required: No Accompanied by: Self / Same As Patient Allergies No Known Allergies [No Known Allergies*] Allergy (Verified 11/15/22 09:30) HPI HPI Comments History of Present Illness Details A 37 y/o male f/u with heartburn- / esophagitis- pantoprazole 40 mg- doing well- Appetite is good- eats healthy Normal bowels- recent fx wrist - hard cast PFSH Medical History Gallbladder polyp Chronic diarrhea Surgical History History of esophagogastroduodenoscopy (EGD) Hx of colonoscopy History of ankle surgery Family History Father No problems noted. Mother No problems noted. 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 Current occupational exposures/hazards: Yes Cognitive needs: No Hearing needs: No Vision needs: No Review of Systems Const All systems reviewed & are unremarkable except as noted in HPI and below Card Denies chest pain and Denies dyspnea Resp Denies dyspnea GI Denies abdominal pain and Denies change in bowel habits Physical Exam Vital Signs: Last Vital Signs Pulse 74 11/15/22 09:31 BP 122/74 11/15/22 09:31 BMI result Body Mass Index 29.0 Const General: cooperative, healthy appearing and comfortable Orientation/consciousness: patient oriented x3 Limitations: no limitations Eyes Sclerae: sclerae normal Resp Effort & Inspection: normal respiratory effort and able to speak in complete sen tences Skin General skin exam: no rashes or lesions noted Neuro General: patient oriented x3 Psych Appearance: grossly normal and well kempt Mental Status: mental status grossly normal Speech and movement: Normal speech and movement present and Clear speech present Affect: normal affect Attitude: cooperative Thought process: Normal thought process present Thought content: Normal thought content present Insight: Good insight present (Psych) Judgement: Good judgement present (Psych) Results Reviewed Results Reviewed: Name: Manuel Santos Age/Sex: 36/M Attending: Sofie Lynn MD : 1985 Submitted by: Sofie Lynn MD Copies to: Villa Lara MD MR #: [id number] Status: DEP [facility] Collected: 07/10/22 Location: .[facility] Received: 07/10/22 Diagnosis A. Duodenum, biopsy: Duodenal mucosa with mildly increased intraepithelial lymphocytes and preserved villous architecture. See comment. B. Stomach biopsy: Antral-type and oxyntic mucosa with mild chronic inactive inflammation; no Helicobacter organisms seen. C. GE junction, biopsy: - Cardiofundic-type mucosa with mild chronic inactive inflammation; no intestinal metaplasia seen. - Active esophagitis (maximum eosinophil count 58 per high powered field). D. Esophagus, distal, biopsy: Active esophagitis (maximum eosinophil count 9 per high powered field). E. Terminal ileum, biopsy: Terminal ileal mucosa within n Assessment & Plan Assessment & Plan (1) Esophagitis: Comment: Continue pantoprazole 40 mg Code(s): K20.90 - Esophagitis, unspecified without bleeding Medications: Refilled pantoprazole 40 mg PO DAILY 30 tabs 6RF Patient Instructions: Very pleasant 37 y/o male Continue pantoprazole 40 mg reflux precautions Call with questions or concerns- Coding Level of Care Code Est Pt Level 3 (59768) Diagnoses Esophagitis K20.90 Time Spent (min) 30
== END 2022-11-15 10:57 | disposition home or self-care (01) ==
PROVIDERS: PCP Family Medicine; Visit Provider Physician Assistant
DX: K20.90 Esophagitis, unspecified without bleeding (principal)
CPT/HCPCS: 99213

== ENCOUNTER → 2022-11-15 09:22 | Outpatient (BNVA) | payer OTHER, SELFPAY | PROVIDERS: PCP Family Medicine; Visit Provider Physician Assistant ==

== ENCOUNTER 2024-04-17 08:03 | Outpatient (AMB) | payer BC, SELFPAY ==
--- OUTSIDE RECORDS SUMMARY | 2024-04-17 08:05 | XMS_ITS | Encounter Summary ---
Author Organization [facility] Address [address] [place] [id number] Phone Care Team Providers Care Pyroglazer Name Role Phone Manuel Edwards Primary Care Provider [phone] Encounter Details Date Type Department Care Team (Late st Contact Info) Description 10/18/2016 Conversion Encounter [facility] [place] [address] [place] [address] Social History Tobacco Use Types Packs/Day Years Used Date Smoking Tobacco: Never Assessed Sex and Gender Information Value Date Recorded Sex Assigned at Not on file Legal Sex Male 4:29 PM EDT Gender Identity Not on file Sexual Orientation Not on file documented as of this encounter Plan of Treatment Not on file documented as of this encounter Visit Diagnoses Not on filedocumented in this encounter Care Teams Pyroglazer Relationship Specialty Start Date End Date Manuel Edwards [address] [place] [address] PCP - General 10/12/16 documented as of this encounter
--- OUTSIDE RECORDS SUMMARY | 2024-04-17 08:05 | XMS_ITS | Clinical Summary ---
Author Organization [facility] Address [address] [place] [id number] Phone Care Team Providers Care Intelligence Research Specialist Name Role Phone Manuel Edwards Primary Care Provider [phone] Immunizations Immunization Administration Dates Next Due DTP 10/04/1992, 0,07/24/1988,05/24,03/20/1988 Hep B, ped/adol 03/12/2000,10/02/1999,08/24/1999 Hib (PRP-T) 04/18/1989 MMR 08/24/1999,02/12/1989 Meningococcal Conj (Menactra) MCV4P 06/27/2006 OPV 10/04/1992, 0,05/24/1988,03/20 Td (adult) (Tenivac), 5 Lf t etanus toxoid, PF, adsorbed 06/08/1997 Tdap 07/01/2008 Family History Relation Name Status Comments Father Alive Father: Alive a nd well Mother Alive Mother: Alive a nd well Sister 1 Alive Sister: Alive a nd well, Alive and well Sister 2 Alive Sister: Alive a nd well, Alive and well Social History Tobacco Use Types Packs/Day Years Used Date Smoking Tobacco: Never Assessed Sex and Gender Information Value Date Recorded Sex Assigned at Not on file Legal Sex Male 4:29 PM EDT Gender Identity Not on file Sexual Orientation Not on file Last Filed Vital Signs Vital Sign Reading Time Taken Comments Blood Pressure - - Pulse - - Temperature 35.6 ??C (96.1 ??F) 07/25/2009 12:00 AM E DT Respiratory Rate - - Oxygen Saturation - - Inhaled Oxygen Concentration - - Weight 78.9 kg (174 lb) 07/25/2009 12:00 AM EDT Height - - Body Mass Index - - Plan of Treatment Health Maintenance Due Date Last Done Comments Varicella Vaccines (1 of 2 - 13+ 2-dose series) 10/13/2000 Consider Men B Vaccine (1 of 2 - Bexsero 2-dose series) 2003 DTaP,Tdap,and Td Vaccines (7 - Td or Tdap) 07/01/2018 07/01/2008, 06/08/1997, 10/04/1992, Additional history exists Influenza Vaccines (#1) 2023 COVID-19 Vaccine ( season) 2023 HIB Vaccines Completed 04/18/1989 IPV Vaccines Completed 10/04/1992, 04/04, 05/24/1988, Additional history exists MMR Vaccines Completed 08/24/1999, 02/12/1989 Hepatitis B Vaccines Completed 03/12/2000, 10/02/1999, 08/24/1999 Meningococcal Vaccine Completed 06/27/2006 HPV Vaccines Aged Out No longer eligi ble based on patient's age to complete this topic Hepatitis A Vaccines Aged Out No long er eligible based on patient's age to complete this topic Men B Vaccine Aged Out No longer elig ible based on patient's age to complete this topic Pneumococcal Vaccine Aged Out No long er eligible based on patient's age to complete this topic Care Teams Intelligence Research Specialist Relationship Specialty Start Date End Date Manuel Edwards [address] [place] [address] PCP - General 10/12/16
--- NOTE | 2024-04-17 08:06 | A.OFFPC_ITS ---
Vital Signs 04/17/24 08:20 Height 5 ft 7 in Weight 189 lb 6 oz BMI 29.7 BP 128/72 Blood Pressure Location Lt brachial Position Sitting Respiration 12 Pulse 59 Pulse Source Pulse Oximeter Temp 98.1 F Temp Source Oral Pulse Oximetry (%) 98 Oxygen Delivery Method Room Air Intake Visit Reasons: re establish care since 22 Intake Note: to establish care Relationship Associate Required: No Allergies No Known Allergies [No Known Allergies*] Allergy (Verified 04/17/24 08:30) Medication List - Last Reconciled 04/17/24 by MARCELA LockhartP- bupropion HCl 100 mg PO DAILY 90 days levocetirizine (Xyzal) 2.5 mg PO QPM pantoprazole 40 mg PO DAILY Tobacco use date assessed: 04/17/24 Dental Screening Dental Screen Date: 04/17/24 Did you have a dental visit in the last 12 months?: Yes Did you have a dental problem in the last 6 months where you did not have access to dental care?: No Was dental information given to patient?: Patient has dentist HPI HPI Comments History of Present Illness Details Emmanuel - The patient is a 38-year-old male pres enting for a complete physical examination and re-establishment of care. - GERD is being managed with pantoprazol e; no current issues reported. - Generalized Anxiety Disorder is stable under treatment with bupropion. - Normalization of cholesterol levels re ported after a recent life insurance screening; previously noted hyperlipidemia. - hx of elevated liver enzymes, though current clinical significance or management plan is not detailed. - Recent r ankle sprain revealed a bone spur; no surgical intervention pursued due to work and family commitments. 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 - The patient does not smoke and consume s alcohol but not to excess. - Discusses wearing glasses occasionally for vision at night or in poor weather conditions. - Mentions staying physically active by running regularly. - An 8-month-old child at home necessita elmer a bustling family environment. Health Maintenance - Tetanus vaccination up to date as of . - Declined flu vaccination for the season. - Screening recommended for skin cancer due to fair complexion and occupational exposure. Review of Systems - General: Denies feeling down, depresse d, or hopeless. - Allergic/Immunologic: Reports using Xy zal for allergies. - Vision: Reports good vision, occasiona l use of glasses for specific situations; no recent eye exam. - Musculoskeletal: Reports bone spur in right ankle causing occasional pain but is still capable of physical activities. - Gastrointestinal: No mention of curren t issues with GERD; chronic diarrhea noted but specific management not discussed. Physical Exam General: Well developed, well nourished, in no acute distress. Appears stated age. Head: Normocephalic, atraumatic. Eyes: Pupils are equal, round and reactive to light and accommodation. Conjunctivae are clear. Vision grossly normal. Ears: TMs clear AU, EACS WNL Nose: Patent, without discharge. Neck: Supple, no adenopathy or thyromegaly. Lungs: Clear to auscultation bilaterally. No rales, rhonchi or wheeze noted. Good air flow in all sims. Heart: Regular rate and rhythm. No murmurs, click, rubs or gallops are noted. : Deferred. Reviewed TRINITY & recommendations for routine CLINICAL INFORMATICS PHYSICIAN Pulses: Peripheral pulses are equal and palpable bilaterally. Extremities: No clubbing, cyanosis nor edema is noted. Neurologic: Gait and station normal. Cranial Nerves 2-12 intact. Motor strength grossly symmetrical and intact. No sensory loss. Balance normal. Skin: No rashes, ulcers, or lesions noted. Turgor is good. Skin color is good. Hair and nails are without abnormalities. Psych: Normal eye contact, affect and mood appropriate, and normal interactions. Patient is alert and appropriate to context. Anxiety well controlled with bupropion. Negative for depression. Discussion Notes I discussed with the patient the management and monitoring of his GERD and generalized anxiety disorder with current medications, pantoprazole, and bupropion, respectively. Discussions included the importance of an annual physical, the use of health portals for communication, and continuity of care, given the lapse in regular visits. I also encouraged him to pursue routine dermatologic screenings given his employment and fair skin. Assessment and Plan 38-year-old male with a history of Gastr oesophageal Reflux Disease, Generalized Anxiety Disorder, Hyperlipidemia, and Elevated Liver Enzymes presenting for a comprehensive physical examination and establishment of care. Current management of GERD and anxiety appears to offer adequate control. The patient expresses satisfaction with the normalization of cholesterol levels post the recent screening, leading to a reconsideration of statin therapy continuation. His ankle bone spur condition is stable, permitting deferral of surgical intervention while maintaining adequate activity levels. . Generalized Anxiety Disorder Bupropion controls anxiety symptoms, continue current medication. Hyperlipidemia Patient opts out of atorvastatin currently after normal lab results. Monitoring will continue. . Ankle Bone Spur Patient defers surgery for now, prioritizing monitoring and regular assessments. I engaged in discussion with the patient about the ongoing management strategy for his conditions including GERD and anxiety, as well as deferred surgical intervention for the ankle bone spur. The risks, benefits, and alternatives of continuing current treatment protocols for GERD and anxiety were reviewed, and consent was obtained verbally, acknowledging the patient's understanding of maintaining his existing medication regimen. The patient also consented to the monitoring approach for hyperlipidemia management and deferral of statin therapy based on recent lab results. Patient was informed and verbally consented to the use of an ambient scribe for clinic note documentation during this visit. [facility] Medical History (Updated 04/17/24 @ 08:46 by NOHEMY Lockhart) Chronic diarrhea Gallbladder polyp Surgical History (Updated 04/17/24 @ 08:39 by NOHEMY Lockhart) History of ankle surgery History of esophagogastroduodenoscopy (EGD) Hx of colonoscopy Family History Father No problems noted. Mother No problems noted. 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 1. Little interest or pleasure in doing things: not at all 2. Feeling down, depressed, or hopeless: not at all 3. Trouble falling or staying asleep, or sleeping too much: not at all 4. Feeling tired or having little energy: not at all 5. Poor appetite or overeating: not at all 6. Feeling bad about yourself - or that you are a failure or have let yourself or your family down: not at all 7. Trouble concentrating on things, such as reading the newspaper or watching television: not at all 8. Moving or speaking so slowly that other people could have noticed. Or the opposite - being so fidgety or restless that you have been moving around a lot more than usual: not at all 9. Thoughts that you would be better off or of hurting yourself in some way: not at all Total score: 0 Depression Screening Interpretation: Negative Depression Screening Done: Yes 53139 - PHQ-9 Billing: Yes Source: Developed by Drs. Manuel Lawson, Iman Noble, Saul Torres and colleagues, with an educational daniela from [employer]. Thrive Questionnaire Date Thrive assessed: 04/17/24 I am a: Patient What is your living situation today?: I have a steady place to live Within the past 12 months, did the food you bought not last and you didn't have the money to get more?: Never true Within the past 12 months, did you worry whether your food would run out before you got money to buy more?: Never true Do you have trouble paying for medicines?: No Do you have trouble getting transportation to medical appointments?: No Do you have trouble paying your heating and electricity bill?: No Do you have trouble taking care of your child, family member or friend?: No Do you have trouble with day-to-day activities such as bathing, preparing meals, shopping, managing finances, etc.?: No Are you currently unemployed and looking for a job?: No Are you interested in more education?: No Please select the resources that you would like help with: None Currently or been in a relationship where the following occur: No concerns reported THRIVE Score: 0 AUDIT C Alcohol Use Questionnaire (AUDIT-C) 1. How often do you have a drink containing alcohol?: 2-3 times a week 2. How many drinks containing alcohol do you have on a typical day when you are drinking?: 1 or 2 3. How often do you have six or more drinks on one occasion?: Monthly Total Score: 5 Score Reviewed/Action Taken: Yes QAMAR-7 AMB Questionnaire QAMAR-7 Date QAMAR - 7 assessed: 04/17/24 Feeling nervous, anxious, or on edge: 0 = Not at all Not being able to stop or control worryin = Not at all Worrying too much about different things: 0 = Not at all Trouble relaxin = Not at all Being so restless that it is hard to sit still: 0 = Not at all Becoming easily annoyed or irritable: 0 = Not at all Feeling afraid as if something awful might happen: 0 = Not at all Total QAMAR-7 score (0-4 normal; 5-9 mild; 10-14 moderate; 15-21 severe): 0 Source: Developed by Drs. Manuel Lawson, Iman Noble, Saul Torres and colleagues, with an educational daniela from [employer]. QAMAR-7 Assessment Billing QAMAR-7 Assessment Tool: QAMAR-7 Assessment 17030 Physical exam (Primary Care) Tobacco/Smoking Status: Tobacco use Status Tobacco use date assessed 11/23/21 04/17/24 08:07 Patient Tobacco Use Status Never used Tobacco 04/17/24 08:07 e-Cigarette/Vaping Use Never Used 04/17/24 08:07 PHQ-9: PHQ-9 Score PHQ-9: Total score 0 04/17/24 08:07 Depression Screening Interpretation: Negative Thrive Assessment: Date of Thrive Assessment Date Thrive assessed 10/26/21 04/17/24 08:07 Currently or been in a relationship where the following occur: No concerns reported Coding Level of Care Code Est Pt Prev Care 18-39y(19015) Diagnoses Encounter for general adult medical examination without abnormal findings Z00.00 Hypercholesterolemia E78.00 Elevated ALT measurement R74.01 Anxiety, generalized F41.1 Laboratory exam ordered as part of routine general medical examination Z00.00 History of ankle sprain Z87.828 Bone spur of right ankle M77.51 Esophagitis K20.90 Hiatal hernia K44.9 Skin cancer screening Z12.83 Additional Codes PHQ-9 - 10336 - PHQ-9 Billing: Yes ([id number]) QAMAR-7 Assessment Billing - QAMAR-7 Assessment Tool: QAMAR-7 Assessment 33186 ([id number]) Assessment & Plan Assessment & Plan (1) Encounter for general adult medical examination without abnormal findings: Code(s): Z00.00 - Encounter for general adult medical examination without abnormal findings Category: Medical (2) Hypercholesterolemia: Code(s): E78.00 - Pure hypercholesterolemia, unspecified Category: Medical (3) Elevated ALT measurement: Code(s): R74.01 - Elevation of levels of liver transaminase levels Category: Medical (4) Anxiety, generalized: Code(s): F41.1 - Generalized anxiety disorder Category: Medical (5) Laboratory exam ordered as part of routine general medical examination: Code(s): Z00.00 - Encounter for general adult medical examination without abnormal findings Category: Medical (6) History of ankle sprain: Code(s): Z87.828 - Personal history of other (healed) physical injury and trauma Category: Medical (7) Bone spur of right ankle: Code(s): M77.51 - Other enthesopathy of right foot and ankle Category: Medical (8) Esophagitis: Comment: Continue pantoprazole 40 mg Code(s): K20.90 - Esophagitis, unspecified without bleeding Category: Medical (9) Hiatal hernia: Comment: Lifestyle dietary change Code(s): K44.9 - Diaphragmatic hernia without obstruction or gangrene Category: Medical (10) Skin cancer screening: Code(s): Z. - Encounter for screening for malignant neoplasm of skin Category: Medical Plan . Orders: Orders Comprehensive [place]. Panel Fast Today Z00.00 - Encounter for general adult medical examination without abnormal findings Lipid Panel Today Z00.00 - Encounter for general adult medical examination without abnormal findings Hemoglobin A1c Today Z00. - Encounter for general adult medical examination without abnormal findings Microalbumin, Random (w Creat) Today Z00.00 - Encounter for general adult medical examination without abnormal findings TSH reflex Free T4 Today Z00.00 - Encounter for general adult medical examination without abnormal findings Referrals Dermatology Referral Z - Encounter for screening for malignant neoplasm of skin Medications: Refilled pantoprazole 40 mg PO DAILY 90 tabs 3RF bupropion HCl 1 tablet once a day 100 mg PO DAILY 90 days 90 tabs 2RF Patient Instructions: Patient Instructions - Continue taking pantoprazole and bupropion as prescribed. - Monitor any new or worsening symptoms of GERD or anxiety. - Report significant changes in bowel habits if noted. - Maintain activity level as tolerated with the ankle and monitor symptoms. - Use of sunscreen and seeking dermatologic evaluation recommended. - Keep scheduled follow-up appointments and routine screenings updated. Health screenings for men You should visit your health care provider regularly, even if you feel healthy. The purpose of these visits is to: Screen for medical issues Assess your risk for future medical problems Encourage a healthy lifestyle Update vaccinations and other preventive care services Help you get to know your provider in case of an illness Information Even if you feel fine, you should still see your provider for regular checkups. These visits can help you avoid problems in the future. For example, the only way to find out if you have high blood pressure is to have it checked regularly. High blood sugar and high cholesterol level also may not have any symptoms in the early stages. Simple blood tests can check for these conditions. There are specific times when you should see your provider or receive specific health screenings. The [place] Preventive Services Task Force publishes a list of recommended screenings. Below are screening guidelines for men ages 40 to 64. BLOOD PRESSURE SCREENING Have your blood pressure checked at least once every year. Watch for blood pressure screenings in your area. Ask your provider if you can stop in to have your blood pressure checked. Ask your provider if you need your blood pressure checked more often if: You have diabetes, heart disease, kidney problems, or are overweight or have certain other health conditions You have a first-degree relative with high blood pressure You are Black Your blood pressure top number is from 120 to 129 mm Hg, or the bottom number is from 70 to 79 mm Hg If the top number is 130 mm Hg or greater or the bottom number is 80 mm Hg or greater, this is considered stage 1 hypertension. Schedule an appointment with your provider to learn how you can lower your blood pressure. Effects of age on blood pressure CHOLESTEROL SCREENING Cholesterol screening should begin at age 35 for men with no known risk factors for coronary heart disease. Repeat cholesterol screening should take place: Every 5 years for men with normal cholesterol levels More often if changes occur in lifestyle (including weight gain and diet) More often if you have diabetes, heart disease, kidney problems, or certain other conditions COLORECTAL CANCER SCREENING If you are under age 45, talk to your provider about getting screened. You may need to be screened if you have a strong family history of colon cancer or polyps. Screening may also be considered if you have risk factors such as a history of inflammatory bowel disease or polyps. If you are age 45 to 75, you should be screened for colorectal cancer. There are several screening tests available: A stool-based fecal occult blood (gFOBT) or fecal immunochemical test (FIT) every year A stool sDNA test every 1 to 3 years Flexible sigmoidoscopy every 5 years or every 10 years with stool testing FIT done every year CT colonography (virtual colonoscopy) every 5 years Colonoscopy every 10 years You may need a colonoscopy more often if you have risk factors for colorectal cancer, such as: Ulcerative colitis A personal or family history of colorectal cancer A history of growths in your colon called adenomatous polyps DENTAL EXAM Go to the dentist once or twice every year for an exam and cleaning. Your dentist will evaluate if you have a need for more frequent visits. DIABETES SCREENING All adults who do not have risk factors for diabetes should be screened starting at age 35 and repeated every 3 years. If you have other risk factors for diabetes, such as a first degree relative with diabetes, overweight or obesity, high blood pressure, prediabetes, or a history of heart disease, you may be tested more often. If you are overweight and have other risk factors, such as high blood pressure and are planning to become , screening is recommended. EYE EXAM Have an eye exam every 2 to 4 years ages 40 to 54 and every 1 to 3 years ages 55 to 64. Your provider may recommend more frequent eye exams if you have vision pr oblems or glaucoma risk. Have an eye exam that includes an examination of your retina (back of your eye) at least every year if you have diabetes. IMMUNIZATIONS Commonly needed vaccines include: Flu shot: get one every year COVID-19 vaccine: ask your provider what is best for you Tetanus-diphtheria and acellular pertussis (Tdap) vaccine: have as one of your tetanus-diphtheria vaccines if you did not receive it as an adolescent Tetanus-diphtheria: have a booster (or Tdap) every 10 years Varicella vaccine: receive 2 doses if you never had chickenpox or the varicella vaccine and were born in 1980 or after Hepatitis B vaccine: receive 2, 3, or 4 doses, depending on your exact circumstances, if you did not receive these as a child or adolescent, until age 59 Shingles (herpes zoster) vaccine: at or after age 50 Ask your provider if you should receive other immunizations, especially if you have certain medical conditions, such as diabetes or are at increased risk for some diseases such as pneumonia. INFECTIOUS DISEASE SCREENING Screening for hepatitis C: all adults ages 18 to 79 should get a one-time test for hepatitis C. Screening for human immunodeficiency virus (HIV): all people ages 15 to 65 should get a one-time test for HIV. Depending on your lifestyle and medical history, you may need to be screened for infections such as syphilis, chlamydia, and other infections. LUNG CANCER SCREENING You should have an annual screening for lung cancer with low-dose computed tomography (LDCT) if: You are age 50 to 80 years AND You have a 20 pack-year smoking history AND You currently smoke or have quit within the past 15 years OSTEOPOROSIS SCREENING If you are age 50 to 64 and have risk factors for osteoporosis, you should discuss screening with your provider. Risk factors can include long-term steroid use, low body weight, smoking, heavy alcohol use, having a fracture after age 50, or a family history of hip fracture or osteoporosis. Osteoporosis PHYSICAL EXAM All adults should visit their provider from time to time, even if they are healthy. The purpose of these visits is to: Screen for diseases Assess risk of future medical problems Encourage a healthy lifestyle Update vaccinations and other preventive care services Maintain a relationship with a provider in case of an illness Your height, weight, and body mass index (BMI) should be checked at every exam. During your exam, your provider may ask you about: Depression and anxiety Diet and exercise Alcohol and tobacco use Safety, such as use of seat belts and smoke detectors Your medicines and risk for interactions PROSTATE CANCER SCREENING If you're 55 through 69 years old, before having the test, talk to your provider about the pros and cons of having a PSA test. Ask about: Whether screening decreases your chance of dying from prostate cancer. Whether there is any harm from prostate cancer screening, such as side effects from testing or overtreatment of cancer when discovered. Whether you have a higher risk of prostate cancer than others. If you are age 55 or younger, screening is not generally recommended. You should talk with your provider about if you have a higher risk for prostate cancer. Risk factors include: Having a family history of prostate cancer (especially a brother or father) Being If you choose to be tested, the PSA blood test is repeated over time (yearly or less often), though the best frequency is not known. Prostate examinations are no longer routinely done on men with no symptoms. Prostate cancer SKIN EXAM Your provider may check your skin for signs of skin cancer, especially if you're at high risk. People at high risk include those who have had skin cancer before, have close relatives with skin cancer, or have a weakened immune system. TESTICULAR EXAM The US Preventive Services Task Force (USPSTF) now recommends against performing testicular self-exams. Doing testicular self-exams has been shown to have little to no benefit. Walk-In Care (Urgent Care): We Make it Easy Walk-in for urgent medical issues such as: ? Seasonal Allergies ? Insect Bites ? Cough ? Diarrhea ? Acute Asthma Attacks ? Back, Knee or Joint Pain ? Ear Infection ? Fever without a Rash ? Headaches ? Nausea ? [place], Rash or Skin Irritation ? Sore Throat ? Sports Physicals ? Vomiting Most insurances are accepted. Patients do not need to be part of the [facility] to seek care at the walk-in clinic. Locations [facility] , [place] [address] ? [phone] [facility] Walk-In Care in [place] provides services to ages 18 and over. Open Saturday-Saturday: 8 a.m. to 5 p.m. and Saturday: 9 a.m. to 3 p.m.* *Hours may vary due to staffing availability. To confirm Walk-In Care hours in [place], please call [phone]. [address] [place] [address] ? [phone] [facility] Walk-In Care in [place] provides services to ages 12 and over. Open Saturday-Saturday: 8 a.m. to 5 p.m. Hours may vary due to staffing availability. To confirm Walk-In Care hours in [place], please call [phone]. LABORATORY SERVICES: [facility] Lab ? Primary Location [address] [place] [address] Saturday through Saturday 6:00 AM ? 5:00 PM Saturday 7:00 AM ? 11:00 AM* [phone] The [facility] Lab is centrally located near the front entrance of the [facility] for easy outpatient access. Convenient parking is provided for outpatients. *Hours may vary due to staffing availability. To confirm Laboratory hours for any location, please call [phone]. Offsite Location For your convenience, we offer offsite laboratory draw stations at the following locations: [facility], [place] [address] [facility], [address], [place] Saturday through Saturday 7:30 AM ? 1:00 PM* [phone] *Hours may vary due to staffing availability. To confirm Laboratory hours for any location, please call [phone]. [place] ? [address] [facility] [facility] [place] Saturday through Saturday 6:00 AM ? 3:30 PM* Saturday 6:30 AM ? 3 PM* [phone] *Hours may vary due to staffing availability. To confirm Laboratory hours for any location, please call [phone]. [address] [facility] Saturday through Saturday 7:30 AM ? 4:00 PM* [phone] *Hours may vary due to staffing availability. To confirm Laboratory hours for any location, please call [phone] [place] [address] Saturday through 9:00 AM ? 4:00 PM* *Hours may vary due to staffing availability. To confirm Laboratory hours for any location, please call [phone]. Appointments are not necessary. Walk-ins are welcome. Like all the departments throughout the [facility], our Lab undergoes frequent reviews to ensure the quality and accuracy of test results, and our staff takes special pride in its status as a nationally accredited facility. Patient Portal: ONE PATIENT. ONE RECORD. BETTER CARE. [facility] has a fully integrated, cutting- edge mobile electronic health information system that has revolutionized the way we care for our patients and manage our organization. This system improves communication and coordination enabling us to provide safe, higher-quality care, and an overall positive experience for staff and patients. Our first priority, as always, is to deliver the highest quality care possible. The system is running in the background supporting that priority. This portal is for all [facility] services and practices. If you are experiencing any technical difficulties with enrolling or logging into the Patient Portal please complete the [facility] Patient Portal Technical Support Form. [facility] now offers a new secure on-line interactive tool for patients to review their health information ? ?Patient Portal. This interactive web portal will enable patients and their families to take an active role in their care by providing easy, secure access to their health information via the internet. The Patient Portal provides patients with instant access to their health information, including laboratory results, medications, allergies, demographic information, visit history, and more. In addition to managing their own care, parents and health care proxies with authorized consent will appreciate the ability to access the records of those individuals for whom they provide care. Please note: if you wish to gain access (Proxy) to another patient?s portal, you will be required to come to the Medical Records Department in person at [facility]. Both the patient giving proxy access and the proxy will need to provide photo identification and complete the appropriate authorization. The Patient Portal also allows track their appointments online. The [facility] Patient Portal also saves patients time by allowing them to submit updates to their demographic and contact information prior to their visits. Portal email notifications will also alert patients to any new activity on their portal, such as test results and new appointments. In order to initially enroll in the [facility] Patient Portal, you will need to enter some required information including the following: * your [facility] Medical Record number * your personal home email address * name * date of Please note: In order to enroll in the [facility] Patient Portal, we need to have your email address on file in your electronic medical record. ?The email address needs to be specific for one person (yourself) in order for your Portal enrollment to be successful. ?You can update your email address in person with our Registration staff when you are registering for a hospital visit. ?Otherwise, you will need to come to the Health Information Management (Medical Records) Department at [facility]. ?We are open from Saturday ? Saturday from 7:30 a.m. ? 4:30 p.m. ?You will be required to present a photo id. Once you have successfully enrolled in the Patient Portal, you will receive a one-time user id and password for the Portal, sent to your email address. ?This will allow you to log into the Patient Portal within 99 hrs and reset your own logon id and password, and define personal security questions. ?Once your permanent login and password have been set, you can log into the [facility] Patient Portal at any time via the blue button above or from the Portal Logon button on any page of the [facility] website. [facility] encourage all of our patients to enroll in Patient Portal as it presents a valuable opportunity for patients and their families to actively participate in their care and stay healthy Welcome to [facility]. ?We look forward to working with you.
[2024-04-17 08:20] VITALS: BP 128/72; PULSE 59; RESP 12; TEMP 36.7; O2SAT 98; BMI 29.7
== END 2024-04-17 08:59 | disposition home or self-care (01) ==
PROVIDERS: PCP Nurse Practitioner Family; Visit Provider Nurse Practitioner Family
DX: Z00.00 Encounter for general adult medical examination without abnormal findings (principal); E78.00 Pure hypercholesterolemia, unspecified; R74.01 Elevation of levels of liver transaminase levels; F41.1 Generalized anxiety disorder; Z87.828 Personal history of other (healed) physical injury and trauma; M77.51 Other enthesopathy of right foot and ankle; K20.90 Esophagitis, unspecified without bleeding; K44.9 Diaphragmatic hernia without obstruction or gangrene; Z12.83 Encounter for screening for malignant neoplasm of skin

== ENCOUNTER → 2024-04-17 08:03 | Outpatient (BNVA) | payer BC, SELFPAY | PROVIDERS: PCP Nurse Practitioner Family; Visit Provider Nurse Practitioner Family | DX: Z00.00 Encounter for general adult medical examination without abnormal findings (principal); E78.00 Pure hypercholesterolemia, unspecified; R74.01 Elevation of levels of liver transaminase levels; F41.1 Generalized anxiety disorder; M77.51 Other enthesopathy of right foot and ankle; K20.90 Esophagitis, unspecified without bleeding; K44.9 Diaphragmatic hernia without obstruction or gangrene; Z87.828 Personal history of other (healed) physical injury and trauma; Z79.899 Other long term (current) drug therapy | CPT/HCPCS: 96127 ==

== ENCOUNTER 2024-04-17 09:02 | Outpatient (REF) | payer BC, SELFPAY ==
--- OUTSIDE RECORDS SUMMARY | 2024-04-17 09:25 | XMS_ITS | Encounter Summary ---
Author Organization [facility] Address [address] [place] [phone] Phone Care Team Providers Care Pit Inspector Name Role Phone Manuel Edwards Primary Care Provider [phone] Encounter Details Date Type Department Care Team (Late st Contact Info) Description 10/18/2016 Conversion Encounter [facility] [address] [place] [address] Social History Tobacco Use Types Packs/Day Years [...] on filedocumented in this encounter Care Teams Pit Inspector Relationship Specialty Start Date End Date Manuel Edwards [address] [place] [address] PCP - General 10/12/16 documented as of this encounter
--- OUTSIDE RECORDS SUMMARY | 2024-04-17 09:26 | XMS_ITS | Clinical Summary ---
Author Organization [facility] Address [address] [place] [id number] Phone Care Team Providers Care Produce Runner Name Role Phone Manuel Edwards Primary Care Provider [phone] Immunizations Immunization Administration Dates Next Due DTP [...] of 2 - 13+ 2-dose series) 10/13/2000 DTaP,Tdap,and Td Vaccines (7 - Td or [...] age to complete this topic Care Teams Produce Runner Relationship Specialty Start Date End Date Manuel Edwards [address] [place] [address] PCP - General 10/12/16
[2024-04-17 11:22] LABS: Estimated Average Glucose 100 mg/dL; Hemoglobin A1c % 5.1 % (<6.0); Total Hemoglobin (HGBA1C) 3670.6926 umol/L
[2024-04-17 11:51] LABS: Creatinine Urine 144.72 mg/dL; Microalbum/Creatinine Ratio Ur 8.9 ug/mg cr (<30)
[2024-04-17 11:54] LABS: Alanine Aminotransferase 29 U/L (0-40); Albumin Level 4.5 g/dL (3.5-5.0); Alkaline Phosphatase 61 U/L (39-117); Anion Gap 9 (12-20); Aspartate Amino Transferase 31 U/L (5-37); Bilirubin Total 0.7 mg/dL (0.0-1.0); Blood Urea Nitrogen 17 mg/dL (9-16); Calcium 9.4 mg/dL (8.4-10.2); Carbon Dioxide 27 mmol/L (22-29); Chloride 107 mmol/L (96-108); Cholesterol 184 mg/dL (<200); Estimated Glomerular Filt Rate > 60; Glucose Fasting 90 mg/dL (60-99); HDL Cholesterol 41 mg/dL (>40); LDL Cholesterol Calculated 127 mg/dL (<100); Potassium 4.4 mmol/L (3.3-5.1); Sodium 139 mmol/L (135-145); Total Protein 7.6 g/dL (6.5-8.0); Triglycerides 84 mg/dL (<150)
[2024-04-17 12:16] LABS: TSH reflex Free T4 2.21 uIU/mL (0.32-4.0)
== END 2024-04-17 09:03 | disposition home or self-care (01) ==
LOC: HO.WFDLDS 09:02
PROVIDERS: Visit Provider Nurse Practitioner Family
DX: Z00.00 Encounter for general adult medical examination without abnormal findings (principal); Z13.1 Encounter for screening for diabetes mellitus; Z13.6 Encounter for screening for cardiovascular disorders
CPT/HCPCS: 36415; 80053; 80061; 82043; 82570; 83036; 84443